=== PATIENT | female | born 1955 | race Caucasian/White ===

== ENCOUNTER 2023-06-26 12:41 | Emergency (ER) | payer MEDICARE ==
--- NOTE | 2023-06-26 12:44 | ERPHSYRPT ---
- History of Present Illness Time Seen by Provider: 06/26/23 12:44 Source: patient, family Exam Limitations: no limitations Physician History: pt fell yesterday and hit left ear and still has a little bleeding there. No LOC but she is on Coumaden and also has tenderness with large echymosis Left hip, but full ROM all ext otw without pain . Some pain and tenderness C spine. No neuro deficits, Fundi are benign. Chest and abd all nontender and without peritoneal signs. ear has tiny superficial lac no palpable fluctuance or hematoma to drain. Surgicil placed with presure dressing and explained to pt and risk for internal bleeding with coumaden and need for CT and for Hip and c spine. CBC and INR, and they agree to proceed with these Txs and testing after discussions of risks and benefits. Results later reviewed with pt and spouse. interviewed as independent source for Hx in ER. Tetanus reported UTD. Timing/Duration: days Severity: moderate ENT Location: ear (L) Prearrival Treatment: no prearrival treatment Modifying Factors: Improves With: nothing Associated Symptoms: denies symptoms Allergies/Adverse Reactions: No Known Drug Allergies Allergy (Unverified 06/26/23 12:49) Home Medications: Carvedilol 12.5 mg [Coreg 12.5 mg] 1 tab PO DAILY 06/26/23 [History] Chlorthalidone 1 tab PO DAILY 06/26/23 [History] Furosemide 20 mg [Lasix 20 mg] 1 tab PO DAILY 06/26/23 [History] Meloxicam 15 mg [Meloxicam 15 MG] 1 tab PO DAILY 06/26/23 [History] Methocarbamol [Robaxin] 1 tab PO DAILY 06/26/23 [History] Oxybutynin Chloride [Oxybutynin Chloride ER] 1 tab PO DAILY 06/26/23 [History] Venlafaxine HCl [Effexor Xr] 1 tab PO DAILY 06/26/23 [History] Zolpidem Tartrate 10 mg [Ambien 10 MG] 1 tab PO HS 06/26/23 [History] - Review of Systems Constitutional: No Fever, No Chills Eyes: No Symptoms Ears, Nose, & Throat: Other (superficial lac left ear) Respiratory: No Cough, No Dyspnea Cardiac: No Chest Pain, No Edema, No Syncope Abdominal/Gastrointestinal: No Abdominal Pain, No Nausea, No Vomiting, No Diarrhea Genitourinary Symptoms: No Dysuria Musculoskeletal: No Back Pain, No Neck Pain Skin: No Rash Neurological: No Dizziness, No Focal Weakness, No Sensory Changes Psychological: No Symptoms Endocrine: No Symptoms All Other Systems: Reviewed and Negative - Past Medical History Pertinent Past Medical History: Yes Other Medical History: on Coumaden - Nursing Vital Signs Nursing Vital Signs: Initial Vital Signs Temperature 97.9 F 06/26/23 12:51 Pulse Rate 62 06/26/23 12:51 Respiratory Rate 18 06/26/23 12:51 Blood Pressure 109/75 06/26/23 12:51 O2 Sat by Pulse Oximetry 98 06/26/23 12:51 Pain Scale Pain Intensity 3 - Physical Exam General Appearance: no apparent distress, alert Eye Exam: bilateral eye: normal inspection, PERRL, EOMI Ear Exam: right ear: auricle normal, left ear: bleeding (lac no hematoma), bilateral ear: canal normal, TM normal Nasal Exam: normal inspection Throat Exam: pharynx normal, moist mucus membranes, No tonsillar exudate Neck Exam: supple Cardiovascular/Respiratory Exam: normal breath sounds, regular rate/rhythm Abdominal Exam: non-tender, soft Neurologic Exam: alert, oriented x 3, sensation nml, No motor deficits Skin Exam: normal color, warm, dry - Course Nursing assessment & vital signs reviewed: Yes - CT Exams Cervical Spine CT Interpretation: Tele-radiologist Report, Fracture (nondisplaced right lat C2 and C3. lamina fx C5. anterolisthesis C4) Left Lower Extremity CT Interpretation: Tele-radiologist Report, No Fracture, Other (heamtoma soft tissues left hip[) Head CT Interpretation: Tele-radiologist Report, No/Intracranial Hemorrhag, Other (microvascular Dx) Ordered Tests: Active Orders 24 hr Category Date Time Status CERVICAL SPINE WO CONTRAST [CT] Stat Exams 06/26/23 13:30 Completed HEAD WITHOUT CONTRAST [CT] Stat Exams 06/26/23 13:30 Completed LOWER EXTREMITY WO CONTRAST [CT] Stat Exams 06/26/23 13:31 Completed Medication Summary Discontinued Medications Generic Name Dose Route Start Last Admin Trade Name Freq PRN Reason Stop Dose Admin Acetaminophen 650 mg 06/26/23 16:19 06/26/23 16:24 Acetaminophen 325 Mg Tablet PO 06/26/23 16:20 650 mg STAT STA Administration Acetaminophen Confirm 06/26/23 16:21 Acetaminophen 325 Mg Tablet Administered 06/26/23 16:22 Dose 650 mg .ROUTE .STK-MED ONE - Progress Progress: improved, re-examined Progress Note: 06/26/23 15:51 pt and spouse advised that we will need to consult with trauma DrValeriano on her c spine fracture - she is placed in cervical hard collar. We have placed a call to regional trauma for consultation. We have also placed a call with radiologist to re confirm the reading. 06/26/23 16:14 consulted [facility] trauma surgeon. He cannot accept due to not having NS support there and referred to [facility] and Dr. Maylin Sprague trauma surgeon has accepted at after consulting. Discussed with pt and family and they have agreed and are also OK with life flight. We are checking availability of [facility] for transport now as we have only BLS available otherwise. [facility] confirmed they will transfer pt [facility] . 06/26/23 16:[address] Other (Dr. Sprague trauma surgeon [place]) Will see patient in: ED Counseled pt/family regarding: lab results, diagnosis, need for follow-up, rad results Medical Desision Making - Independent Historian Additional History obtained from: Spouse - Discussion of managment Care discussed with:: specialist (trauma surgeon) Reviewed:: Test results, Need for additional workup Agreed on:: Treatment plan, need for follow-up Will see patient: in ED - Diagnostic Testing Diagnostic test were ordered, analyzed, and reviewed by me: Yes Radiological Interpretation: Teleradiologist Report - Risk of complications The pt has a high risk of morbidity or mortality based on: Need for major surgery in patient with known risk factors, Decision regarding hospitilization or escalation of hosp level of care - Departure Departure Disposition: Transfer Clinical Impression: C2,C3,C5 fractures, Hematoma of left hip, cerebral Microvascular Dx Condition: Good Critical Care Time: No Referrals: DOCTOR,NO FAMILY [Primary Care Provider] - Follow up/PCP as directed Instructions: Wound Care (DC)
[2023-06-26 13:16] VITALS: TEMP 97.9
--- NOTE | 2023-06-26 15:10 | XRAY ---
CLINICAL HISTORY:trauma with neck pain COMPARISON:None. TECHNIQUE:Thin axial CT of the cervical spine was performed with sagittal and coronal reconstructions without intravenous contrast administration. FINDINGS: Minimally displaced fractures implicating the right lateral body of the C2 with the extension of the fracture through C2-C3 neural exit foramen. Another non-displaced fracture of the right lamina of C5 is noted. Grade II antrolithesis of C4 is noted. Overall reduced bone density of the visualized spine with prominent trabecular pattern. Degenerative changes at the atlantoaxial articulation with surrounding soft tissue thickening and calcification. Cervical spondylotic changes with marginal osteophytes and narrowed lower cervical disc spaces. C4/5, C5/6, and C6/7 posterior disc bulges with posterior traction osteophytes effacing the anterior subarachnoid space, indenting the cervical cord and partially encroaching upon corresponding neural exit foramina. Degenerative changes at C2/3, C3/4, and C4/5 facet joints with marginal osteophytes encroaching upon corresponding neural exit foramina bilaterally. The vertebral bodies are normal in height. No lytic or sclerotic bone lesion. The paravertebral soft tissues are unremarkable. IMPRESSION: 1. Minimally displaced fractures implicating the right lateral body of the C2 with the extension of the fracture through C2-C3 right neural exit foramen, further CT angiography would be recommended for better assessment of vertebral artery integrity. 2. Another non-displaced fracture of the right lamina of C5 is noted. 3. Grade II antrolithesis of C4, likely degenerative. 4. Overall reduced the bone density of the visualized spine. 5. Cervical spondylotic changes with disc lesions and facet arthropathy as described. For better assessment of disc disease MRI remains the modality of choice if clinically indicated. The [facility] ER was called at [phone] at 02:01 PM TRAIN BRAKE OPERATOR, 06/26/2023 and significant medical findings were verbally communicated to referring Doctor Rene Dean. Electronically Signed by: Devendra Agustin MD. (06/26/2023 14:08:45 TRAIN BRAKE OPERATOR)
--- NOTE | 2023-06-26 15:14 | XRAY ---
CLINICAL HISTORY:trauma with echymosis left mastoid COMPARISON:None. TECHNIQUE:An axial non-contrast CT scan of the brain was performed from the skull base to the high parietal region. FINDINGS: There are a few tiny ill-defined small hypodense areas noted in the subcortical white matter bilaterally, suggestive of microvascular ischemic changes. The ventricular system, cortical sulci, and basal cisterns are prominent and consistent with mild brain involutional changes. Watters-white matter differentiation is maintained. No midline shifts or deformity. No intracerebral or extra axial hematoma. Normal CT appearance of the posterior fossa structures namely the cerebellar hemispheres, brainstem and cerebellar peduncles. The IACs are unremarkable. The cerebello-pontine angles are clear. The pituitary gland, the pineal gland, and the optic chiasm are unremarkable. The osseous structures in the skull base are unremarkable. No definite calvarium fractures. The scanned paranasal sinuses are clear. Right occipital scalp lesion, probably sebaceous cyst. IMPRESSION: No intracranial hematoma, or skull fractures. The above-mentioned findings are suggestive of mild microvascular ischemic changes and mild brain involutional changes. The rest of the non-enhanced CT study for the brain is unremarkable. Electronically Signed by: Devendra Agustin MD. (06/26/2023 14:13:54 COURT ADVOCATE)
--- NOTE | 2023-06-26 15:42 | XRAY ---
CLINICAL HISTORY:trauma left hip COMPARISON:None. TECHNIQUE:CT scan of the left hip and left lower extremity without IV contrast. Coronal and sagittal reconstructive images were obtained. FINDINGS: No acute fractures or dislocations could be detected. There is a large hematoma with leveling seen at the left lateral upper thigh measures about 6.5 X 6 cm with surrounding fatty stranding. Smaller adjacent similar hematomas are also noted. 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 A sclerotic bony lesion, likely bone island was noted at the left iliac bone. The left femoral head reveals a normal rounded contour. No evidence of articular collapse. No loose bodies. There is no evidence of joint effusion. The left sacroiliac joint shows periarticular sclerosis and vacuum phenomenon. Osteopenia of the examined bones. No lytic bone lesions. Prolapse at the urinary bladder neck with tiny calcification, and suspected right anterolateral urinary bladder diverticulum IMPRESSION: 1. No acute left hip osseous fractures are noted. 2. Large hematoma with leveling seen at the left lateral upper thigh. 3. Osteopenia of the examined bones. 4. 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 5. Left sacroiliitis. 6. A sclerotic bony lesion, likely bone island noted at the left iliac bone. The [facility] ER was called at [phone] at 02:01 PM SYSTEMS ANALYSIS MANAGER, 06/26/2023 and significant medical findings were verbally communicated to referring Doctor Rene Dean. Electronically Signed by: Devendra Agustin MD. (06/26/2023 14:40:19 SYSTEMS ANALYSIS MANAGER)
[2023-06-26 16:18] VITALS: BP 132/96; PULSE 77; RESP 17; O2SAT 100
[2023-06-26] MEDS ORDERED: TYLENOL 325 MG PO STA (16:19)
[2023-06-26] MEDS ORDERED: TYLENOL 325 MG ONE (16:21)
== END 2023-06-26 18:01 | disposition short-term general hospital (02) ==
LOC: ED 12:41
DX: S12.100A Unspecified displaced fracture of second cervical vertebra, initial encounter for closed fracture (principal); S12.200A Unspecified displaced fracture of third cervical vertebra, initial encounter for closed fracture; S12.490A Other displaced fracture of fifth cervical vertebra, initial encounter for closed fracture; S70.02XA Contusion of left hip, initial encounter; S01.312A Laceration without foreign body of left ear, initial encounter; W19.XXXA Unspecified fall, initial encounter; I67.82 Cerebral ischemia; Z79.01 Long term (current) use of anticoagulants; Z79.899 Other long term (current) drug therapy
CPT/HCPCS: 70450; 72125; 73700; 99284; A9270-GY